=== PATIENT | female | born 1985 | race Two or more races ===

== ENCOUNTER 2019-04-11 10:50 | Emergency (ER) | payer MEDICAID, OTHER ==
[~2019-04-11] VITALS: Ht 160 cm; Wt 121.1 kg
[~2019-04-11 10:50] MED LIST: PANT40TA2 PO
--- NOTE | 2019-04-11 11:17 | NUR ---
AT BEDSIDE FOR EVAL.
--- NOTE | 2019-04-11 11:30 | NUR ---
URINE SPECIMEN COLLECTED AND SENT TO LAB.
--- NOTE | 2019-04-11 11:33 | NUR ---
ER PHLEB AT BEDSIDE FOR BLOOD DRAW.
[2019-04-11 11:39] LABS: BASOPHILS # (AUTO) 0.1 /CMM (0.0-0.2); BASOPHILS % (AUTO) 1.2 % (0.0-2.0); EOSINOPHILS % (AUTO) 3.2 % (0.0-6.0); HEMATOCRIT 37 % (33-45); HEMOGLOBIN 11.9 g/dL (11.5-14.8); LYMPHOCYTES # (AUTO) 1.5 /CMM (0.8-4.8); LYMPHOCYTES % (AUTO) 27.9 % (20.0-44.0); MEAN CORPUSCULAR HGB CONC 32 g/dl (31.0-36.0); MEAN CORPUSCULAR VOLUME 80 fL (82-100); MONOCYTES # (AUTO) 0.5 /CMM (0.1-1.30); NEUTROPHILS # (AUTO) 3.2 /CMM (1.8-8.9); NEUTROPHILS % (AUTO) 58.7 % (43.0-81.0); PLATELET COUNT (AUTO) 252 /CMM (150-450); RED BLOOD CELL COUNT(AUTO) 4.63 MIL/uL (4.0-5.2); WHITE BLOOD COUNT (AUTO) 5.4 K/uL (4.3-11.0)
[2019-04-11 11:40] LABS: APPEARANCE,URINE Clear (CLEAR); BILIRUBIN,URINE Negative (NEGATIVE); BLOOD, URINE Negative Ery/uL (NEGATIVE); COLOR,URINE Yellow (YELLOW); KETONES,URINE Negative (NEGATIVE); LEUKOCYTE ESTERASE ,URINE Negative (NEGATIVE); NITRITE, URINE Negative (NEGATIVE); PH,URINE 5.5 (5.0-8.0); PROTEIN,URINE Negative (NEGATIVE); UGLUCOSE Negative (NEGATIVE); UROBILINOGEN,URINE 0.2 EU/dL (0.2)
[2019-04-11 11:48] LABS: CALCIUM, SERUM 8.5 mg/dL (8.5-10.1); CREATININE 0.5 mg/dL (0.6-1.3)
[2019-04-11 11:54] LABS: ALBUMIN 3.2 g/dL (3.4-5.0); BILIRUBIN,DIRECT 0.1 mg/dL (0.0-0.2); BILIRUBIN,TOTAL 0.3 mg/dL (0.2-1.0); TOTAL PROTEIN, SERUM 6.6 g/dL (6.4-8.2)
[2019-04-11 12:22] VITALS: BP 122/72
== END 2019-04-11 12:22 | disposition home or self-care (01) ==
LOC: ER 10:55
DX: R10.30 Lower abdominal pain, unspecified (principal); I10 Essential (primary) hypertension; Z88.0 Allergy status to penicillin; Z79.899 Other long term (current) drug therapy
CPT/HCPCS: 36415; 80048-TC; 80076-TC; 81000-TC; 83690-TC; 84703-TC; 85025-TC

== ENCOUNTER → 2020-02-19 | Emergency (ER) | payer MEDICAID ==
[~2020-02-19] VITALS: Ht 170.2 cm; Wt 131.5 kg
[2020-02-19 13:41] VITALS: BP 134/77
--- NOTE | 2020-02-19 14:03 | NUR ---
THE PATIENT ELOPED FROM THE FACILITY
== END ==
LOC: ER 13:29
DX: R10.30 Lower abdominal pain, unspecified (principal); R50.9 Fever, unspecified; Z53.21 Procedure and treatment not carried out due to patient leaving prior to being seen by health care provider

== ENCOUNTER 2021-12-15 11:53 | Emergency (ER) | payer MEDICAID ==
[~2021-12-15] VITALS: Ht 175.3 cm; Wt 90.7 kg
[2021-12-15] MEDS ORDERED: IV NS 0.9% 1,000 ML IV ONE (12:30)
--- NOTE | 2021-12-15 12:30 | NUR ---
SALINE LOCK ESTABLISHED, BLOOD DRAWN AND SENT TO LAB
--- NOTE | 2021-12-15 12:39 | NUR ---
COVID SWAB DONE AND SENT TO LAB
[2021-12-15] MEDS ORDERED: DEXTROSE 50%-WATER 50 ML DISP.SYRIN ONE ×2 (12:45→14:41)
[2021-12-15 12:47] LABS: BASOPHILS % (AUTO) 0.3 % (0.0-2.0); EOSINOPHILS % (AUTO) 0.1 % (0.0-6.0); HEMATOCRIT 31 % (33-45); HEMOGLOBIN 8.9 g/dL (11.5-14.8); LYMPHOCYTES % (AUTO) 12.6 % (20.0-44.0); MEAN CORPUSCULAR HGB CONC 29 g/dl (31.0-36.0); MEAN CORPUSCULAR VOLUME 58 fL (82-100); MONOCYTES # (AUTO) 0.3 K/uL (0.1-1.30); MONOCYTES % (AUTO) 4.5 % (2.0-12.0); NEUTROPHILS # (AUTO) 6.3 K/uL (1.8-8.9); NEUTROPHILS % (AUTO) 82.5 % (43.0-81.0); PLATELET COUNT (AUTO) 266 K/uL (150-450); RED BLOOD CELL COUNT(AUTO) 5.31 MIL/uL (4.0-5.2); WHITE BLOOD COUNT (AUTO) 7.6 K/uL (4.3-11.0)
--- NOTE | 2021-12-15 12:51 | NUR ---
bs 49; dr burrows made aware w/ order for d50 iv. order noted and verified.
--- NOTE | 2021-12-15 12:55 | NUR ---
urine sample collected and sent to lab
[2021-12-15] MEDS ORDERED: DEXTROSE 50%-WATER 50 ML DISP.SYRIN IVP ONE (13:30)
[2021-12-15 15:19] LABS: BILIRUBIN,URINE NEGATIVE (NEGATIVE); COLOR,URINE YELLOW (YELLOW); LEUKOCYTE ESTERASE ,URINE NEGATIVE (NEGATIVE); NITRITE, URINE NEGATIVE (NEGATIVE); PROTEIN,URINE NEGATIVE (NEGATIVE); UGLUCOSE NEGATIVE (NEGATIVE); UROBILINOGEN,URINE 0.2 EU/dL (0.2)
[2021-12-15] MEDS ORDERED: DEXTROSE 10% IN WATER 250 ML BAG IV ONE (15:30)
--- NOTE | 2021-12-15 15:50 | NUR ---
Patient does not wish to proceed with medical care recommended by Dr. Heart. Patient given information related to possible complications, up to and including , which could occur as a result of leaving the hospital at this time. Patient verbalizes understanding of risks involved due to leaving against medical advice. Patient has signed AMA form.
[2021-12-15 15:55] VITALS: BP 133/75
[2021-12-15 16:03] LABS: BACTERIA,URINE Few /HPF (None Seen); RBC,URINE TOO NUMEROUS TO COUN /HPF (0-2); SQUAMOUS EPITHELIAL CELL,UR Few /HPF (None Seen); WBC,URINE 0-2 /HPF (0-3)
[2021-12-15 16:04] LABS: BAND % (MANUAL) 1 % (0.0-5.0); LYMPHOCYTES % (MANUAL) 15 % (16-48); MONOCYTES % (MANUAL) 6 % (0-11.0); NEUTROPHILS % (MANUAL) 78 (42-76)
[2021-12-15 16:20] LABS: ALBUMIN 3.4 g/dL (3.4-5.0); BILIRUBIN,DIRECT 0.1 mg/dL (0.0-0.2); BILIRUBIN,TOTAL 0.3 mg/dL (0.2-1.0); CALCIUM, SERUM 8.8 mg/dL (8.5-10.1); CREATININE 0.6 mg/dL (0.6-1.3); POTASSIUM 4.3 mmol/L (3.5-5.1); TOTAL PROTEIN, SERUM 7.3 g/dL (6.4-8.2)
== END 2021-12-15 15:55 | disposition left against medical advice (07) ==
LOC: ER 11:55
DX: E16.2 Hypoglycemia, unspecified (principal); Z20.822 Contact with and (suspected) exposure to COVID-19; I10 Essential (primary) hypertension; Z98.84 Bariatric surgery status; Z88.0 Allergy status to penicillin; D64.9 Anemia, unspecified; Z53.29 Procedure and treatment not carried out because of patient's decision for other reasons
CPT/HCPCS: 99291; 96374; 96361; 87426; 85025; 80048; 80076; 84703; 81001; 36415; 82962 ×4; 85007; J7030; C9803